=== PATIENT | female | born 1955 | race Two or more races ===

== ENCOUNTER → 2019-03-12 | Outpatient (CLI) | payer OTHER | END | disposition home or self-care (01) | LOC: RAD 07:50 | DX: M43.26 Fusion of spine, lumbar region (principal); S22.080S Wedge compression fracture of T11-T12 vertebra, sequela; M54.5 Low back pain; M41.56 Other secondary scoliosis, lumbar region; M47.26 Other spondylosis with radiculopathy, lumbar region ==